=== PATIENT | female | born 1955 | race Caucasian/White ===

== ENCOUNTER → 2020-07-22 13:15 | Outpatient (CLI) | payer MEDICARE, SELFPAY ==
--- NOTE | ~2020-07-22 | MM_ITS ---
EXAMINATION: MM screening [facility] BI w serina HISTORY: Screening mammogram TECHNIQUE: Craniocaudal and mediolateral oblique 3-D tomosynthesis images were obtained and synthetic 2-D images were generated. CAD analysis was submitted and interpreted. COMPARISON: 04/18/2007 bilateral digital screening mammogram BREAST PARENCHYMAL COMPOSITION: There are scattered areas of fibroglandular density. FINDINGS: There is mild fibroglandular asymmetry. Bilateral diagnostic mammography is recommended, wi th ultrasound if required. No malignant calcification, skin thickening or retraction is evident. IMPRESSION: 1. Bilateral mammographic asymmetry 2. Bilateral diagnostic mammography is recommended, with ultrasound if required BI-RADS Category 0: Incomplete: Needs additional imaging evaluation. Reviewed, dictated and finalized at location A.
--- NOTE | ~2020-07-22 | DEXA_ITS ---
Bone Density Report Name: Brook Maurer Age: 65 Sex: Female Ethnicity: White Date of : 1955 Indication: postmenopausal; screening for osteoporosis; parental hip fracture; height loss; prior fracture; Referring Provider: John Cote Study: Bone densitometry was performed. Exam Date: July 22, 2020 Accession number: [id number] Bone Density: Region BMD T-score Z-score Classification AP Spine (L1, L3, L4) 1.241 1.7 3.6 Normal Femoral Neck (Left) 1.071 2.0 3.6 Normal Total Hip (Left) 1.253 2.6 3.8 Normal Femoral Neck (Right) 1.083 2.1 3.7 Normal Total Hip (Right) 1.267 2.7 4.0 Normal Total Hip Mean 1.260 2.7 3.9 Normal World Health Organization criteria for BMD impression classify patients as: Normal (T-score at or above -1.0), Osteopenia (T-score between -1.0 and -2.5), or Osteoporosis (T-score at or below -2.5). 10-year Fracture Risk: FRAX not reported because: All T-scores for Spine Total, Hip Total, Femoral Neck at or above -1.0 Clinical Information Provided by Patient: Has had a low trauma fracture Parent has had a hip fracture Has used the following medications: Vitamin D, Calcium Patient maximum height was 66.7 Menopause Age: 54 No regular weight bearing exercise Onset of menses at age 12 Number of children 2 Impression: The patient has normal bone mass. The patient has risk factors, including: parental hip fracture, previous fracture. Discussion: LOW RISK OF FRACTURE; BONE DENSITY IS WELL ABOVE THE MINIMUM DESIRABLE LEVEL AND ABOVE AVERAGE FOR AGE AND SEX AT ALL SKELETAL SITES TESTED. This person's bone density is above expected limits for age and sex. This is rarely clinically significant, but should be pursued if there are significant musculoskeletal complaints. The patient should follow a healthful lifestyle (good nutrition with adequate calcium and vitamin D, and appropriate weight-bearing exercise). Follow-Up: Consider repeating this study in 5 years or sooner if there is some new clinical indication. Reported by: MIAH on 07/22/2020 1:41:00 PM. Reviewed, dictated and finalized at location A. [facility] HOSPITALBrandon
== END ==
PROVIDERS: PCP Family Medicine; Visit Provider Physician Assistant Medical
DX: Z12.31 Encounter for screening mammogram for malignant neoplasm of breast (principal); Z78.0 Asymptomatic menopausal state; R92.8 Other abnormal and inconclusive findings on diagnostic imaging of breast
CPT/HCPCS: 77063; 77067; 77080

== ENCOUNTER → 2020-08-19 08:53 | Outpatient (CLI) | payer MEDICARE, SELFPAY ==
--- NOTE | ~2020-08-19 | MM_ITS ---
EXAMINATION: MM diagnostic mammo unilat LT HISTORY: Asymmetric approximately 9 mm no mammographic opacity in central left breast on craniocaudal view of 07/22/2020 TECHNIQUE: Additional 3-D tomosynthesis images of the left breast were performed and synthetic 2-D im ages were generated. CAD analysis was submitted and interpreted. COMPARISON: 07/22/2020 bilateral digital screening mammogram FINDINGS: No reproducible mass or architectural distortion is evident. IMPRESSION: 1. No mammographic evidence of a likely 2. Routine annual mammographic screening is recommended. BI-RADS Category 1: Negative Reviewed, dictated and finalized at location A.
== END ==
PROVIDERS: PCP Family Medicine; Visit Provider Physician Assistant Medical
DX: R92.8 Other abnormal and inconclusive findings on diagnostic imaging of breast (principal)
CPT/HCPCS: 77065

== ENCOUNTER → 2020-11-07 11:30 | Outpatient (CLI) | payer MEDICARE, SELFPAY ==
--- NOTE | ~2020-11-07 | XR_ITS ---
XR knee LT min 4V DATE: 11/07/2020 11:51 INDICATION: Left knee chronic pain. No injury. TECHNIQUE: Standing AP, PA views. Lateral and sunrise views. COMPARISON: None FINDINGS: There is tricompartment osteoarthritis, most prominent at the patellofemoral joint where th ere is prominent joint space narrowing and prominent periarticular spurring. There is particular spur ring at the lateral and to a minimal extent medial compartments, moderate loss of height of the media l compartment joint space. No fracture or dislocation, periosteal reaction or bone destruction or joint effusion. No radiopaque intra-articular loose body or chondrocalcinosis. 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
== END ==
PROVIDERS: PCP Physician Assistant Medical; Visit Provider Physician Assistant Medical
DX: M17.12 Unilateral primary osteoarthritis, left knee (principal)
CPT/HCPCS: 73564

== ENCOUNTER → 2020-11-30 08:06 | Outpatient (CLI) | payer MEDICARE, SELFPAY ==
--- NOTE | ~2020-11-30 | MR_ITS ---
EXAMINATION: MR knee LT wo con DATE: 11/30/2020 09:08 INDICATION: Left knee pain. TECHNIQUE: Magnetic resonance imaging (MRI) of the left knee was performed without intravenous contra st. Sequences included axial PD-weighted FS FSE, coronal PD-weighted FSE and PD-weighted FS FSE, sagi ttal PD-weighted FSE, and sagittal T2-weighted FS FSE. COMPARISON: Left knee radiographs 11/07/2020 FINDINGS: Medial compartment: Medial meniscus is normal. There is shallow partial-thickness cartilage loss of femoral condyle and t ibial condyle. There is deep partial thickness cartilage loss of femoral condyle involving the centra l articular surface. Osteophytes are noted. Lateral compartment: There is a radial tear of posterior horn of lateral meniscus. There is deep partial thickness cartila ge loss of tibial condyle involving the central articular surface. There is deep partial thickness ca rtilage loss of femoral condyle involving the central articular surface. Osteophytes are noted. Patellofemoral compartment: There is full-thickness cartilage loss of patellar median ridge and lateral facet with cortical remod eling and mild subchondral edema-like marrow signal intensity. There is partial-thickness cartilage l oss of patellar medial facet. There is full-thickness cartilage loss of central and lateral trochlea with cortical remodeling and mild subchondral edema-like marrow signal intensity. Osteophytes are not ed. Ligaments and tendons: The anterior and posterior cruciate ligaments are normal. Medial collateral ligament and lateral judah ateral ligament complex are intact. There is mild patellar tendinopathy. Fluid: There is a small knee joint effusion. There is mild superficial infrapatellar bursitis. IMPRESSION: 1. Severe chondrosis of patellofemoral compartment and moderate chondrosis of medial and lateral comp artments. 2. Tear of lateral meniscus. 3. Small knee joint effusion. Reviewed, dictated and finalized at location A. IMPRESSION: 1. Severe chondrosis of patellofemoral compartment and moderate chondrosis of m edial and lateral compartments. 2. Tear of lateral meniscus. 3. Small knee joint effusion.
== END ==
PROVIDERS: PCP Family Medicine; Visit Provider Family Medicine
DX: M25.569 Pain in unspecified knee (principal); S83.282A Other tear of lateral meniscus, current injury, left knee, initial encounter; M25.462 Effusion, left knee
CPT/HCPCS: 73721

== ENCOUNTER 2023-02-02 02:35 | Day surgery (SDC) | payer MEDICARE, SELFPAY ==
[2023-01-22 10:28] VITALS: BMI 55.0
--- NOTE | 2023-01-29 11:30 | SUR.PREOP ---
Patient called regarding upcoming procedure. Message left on patient's voicemail regarding preop instructions and appointment times.Call back number given.
[2023-02-02 08:29] VITALS: BP 148/93; PULSE 71; RESP 22; TEMP 36.2; O2SAT 99; BMI 55.0
[2023-02-02] MEDS: LACTATED RINGERS 1,000 ML 150 ML IV CONT (08:31)
--- NOTE | 2023-02-02 08:54 | WPDANESEPPF ---
Anes - Initial Pre Proc Eval Procedure: Operation Date: 02/02/23 09:30 Proposed Procedures p Screening Colonoscopy - Brad Calvillo MD Date/Time: 02/02/23 08:54 Surgeon: Brad Calvillo MD Pre Op Diagnosis: eveline screening;fam hx of neoplasm digestive organ Patient Data Age: 67 Gender: F Height: 1.65 m Weight: 150.2 kg Last Vital Signs Temp 97.1 F L 02/02/23 08:29 Pulse 71 02/02/23 08:29 Resp 22 H 02/02/23 08:29 BP 148/93 H 02/02/23 08:29 Pulse Ox 99 02/02/23 08:29 O2 Del Method Room Air 02/02/23 08:29 Allergies Allergy/AdvReac Type Severity Reaction Status Date / Time tramadol Allergy Unknown Diarrhea Verified 02/02/23 08:27 Home Medications Medication Instructions Recorded Confirmed Type cholecalciferol (vitamin D3) 50 50 mcg PO DAILY 09/13/20 02/02/23 History mcg (2,000 unit) capsule mecobalamin (vitamin B12) 1,000 1,000 mcg PO DAILY 09/13/20 02/02/23 History mcg chewable tablet acetaminophen 325 mg tablet 325 mg PO Q6H PRN Pain 12/16/20 02/02/23 History (Tylenol) duloxetine 60 mg capsule,delayed See Rx Instructions .Route 08/13/21 02/02/23 Rx release .COMPLEX #180 caps pramipexole 1 mg tablet 1 mg PO BID #180 tabs 12/14/22 02/02/23 Rx Patient hx anesthesia problems: none Family hx anesthesia problems: none Results Review: All pre-operative results and documents have been reviewed as part of the pre-operative evaluation. [facility], [facility] Past Medical History Medical History (Updated 02/02/23 @ 08:59 by Brad Calvillo MD) Colon cancer screening Family History Family History Sibling Diabetes mellitus Family history of thyroid disease Hypertension Mother Family history of malignant neoplasm Diabetes mellitus Father Family history of cardiovascular disease Grandparent Family history of pancreatic cancer Other Family history of ankylosing spondylitis Social History Social History Smoking status: Never smoker Alcohol intake: never Lack of Transportation: No Lack of Food: Never True Current Housing: I Have Housing Concerned About Future Housing: No Difficulty Paying Gas/Electric Bills: No Difficulty Paying for Meds: No Currently Unemployed: No Education: Bachelor's Degree Difficulty w/ Childcare or Family Care: No Living arrangements: with family Spiritual care concerns: No Anes - Eval Final PreProcedure Day of Procedure 02/02/23 08:54 Patient weight: super morbidly obese Heart: regular rate and rhythm Lungs: clear to auscultation Airway: Mallampati scale class II Neurological: alert and oriented Last oral intake: >/= 8 hours ASA classification: III Emergent: no Anesthetic plan: proceed Anesthesia type and monitoring: general GIVS and standard monitoring Results Review: All pre-operative results and documents have been reviewed as part of the pre-operative evaluation. Informed Consent: The patient's anesthetic plan and its attendant risks and benefits were discussed with the patient/family/POA. Questions were solicited and answers provided to the satisfaction of the patient/family/POA.
--- NOTE | 2023-02-02 08:58 | PM.HPGS ---
History of Present Illness History of Present Illness Consent: Risks, benefits, and alternatives have been discussed and questions answered. Patient agrees to proceed with procedure. Chief complaint: eveline screening;fam hx of neoplasm digestive organ Narrative: Brook Maurer is a 67 year old female here for first screening colonoscopy Review of Systems Constitutional: Constitutional: Denies headache(s) and Denies weakness Eyes: Eyes: Denies blurry vision ENT: Reports Normal hearing present, Denies headache(s) and Denies neck pain Cardiovascular: Cardiovascular: Denies chest pain and Denies dyspnea Respiratory: Respiratory: Denies dyspnea Gastrointestinal: Gastrointestinal: Reports no additional gastrointestinal complaints Genitourinary: Genitourinary: Denies dysuria Musculoskeletal: Musculoskeletal: Denies neck pain Integumentary/Breasts: Skin/Breast: Denies dry skin Neurologic: Reports Normal hearing present, Denies headache(s) and Denies weakness Psychiatric: Psychiatric: Denies anxiety Endocrine: Endocrine: Denies change in body appearance Hematologic/Lymphatic: Hematologic/Lymphatic: Denies easy bleeding Allergic/Immunologic: Allergic/Immunologic: Denies urticaria PMFSH Past Medical History Medical History (Updated 02/02/23 @ 08:59 by Brad Calvillo MD) Colon cancer screening Family History Family History Sibling Diabetes mellitus Family history of thyroid disease Hypertension Mother Family history of malignant neoplasm Diabetes mellitus Father Family history of cardiovascular disease Grandparent Family history of pancreatic cancer Other Family history of ankylosing spondylitis Social History Social History Smoking status: Never smoker Alcohol intake: never Lack of Transportation: No Lack of Food: Never True Current Housing: I Have Housing Concerned About Future Housing: No Difficulty Paying Gas/Electric Bills: No Difficulty Paying for Meds: No Currently Unemployed: No Education: Bachelor's Degree Difficulty w/ Childcare or Family Care: No Living arrangements: with family Spiritual care concerns: No Meds Home Medications and Allergies Home Medications Medication Instructions Recorded Confirmed Type cholecalciferol (vitamin D3) 50 50 mcg PO DAILY 09/13/20 02/02/23 History mcg (2,000 unit) capsule mecobalamin (vitamin B12) 1,000 1,000 mcg PO DAILY 09/13/20 02/02/23 History mcg chewable tablet acetaminophen 325 mg tablet 325 mg PO Q6H PRN Pain 12/16/20 02/02/23 History (Tylenol) duloxetine 60 mg capsule,delayed See Rx Instructions .Route 08/13/21 02/02/23 Rx release .COMPLEX #180 caps pramipexole 1 mg tablet 1 mg PO BID #180 tabs 12/14/22 02/02/23 Rx Allergies Allergy/AdvReac Type Severity Reaction Status Date / Time tramadol Allergy Unknown Diarrhea Verified 02/02/23 08:27 Vital Signs Vital Signs - 24 hr 02/02/23 08:29 Temperature 97.1 F L Pulse Rate 71 Respiratory Rate 22 H Blood Pressure 148/93 H Pulse Oximetry 99 Oxygen Delivery Room Air Exam Const: General: comfortable and no acute distress HENMT: Face/Nose/Sinus: Normal nares present Eyes: General: appearance normal, both eyes and all related structures Neck: Neck: no JVD Resp: Auscultation: clear to auscultation bilaterally Cardio: Rate: regular rate Rhythm: regular rhythm GI: Inspection: non-distended GI Palp: Yes Soft to palpation Skin: General skin exam: normal color Neuro: General: gait normal Speech: normal speech Extrem: General: normal to inspection Psych: Mental Status: mental status grossly normal Assessment and Plan Assessment and plan (1) Colon cancer screening: Code(s): Z12.11 - Encounter for screening for malignant neoplasm of colon Status: Acute Assessment and Plan:
[2023-02-02 09:33] VITALS: BP 95/51; PULSE 79; RESP 23; O2SAT 99
[2023-02-02 09:43] VITALS: BP 115/63; PULSE 78; RESP 16; O2SAT 98
[2023-02-02 09:53] VITALS: BP 123/56; PULSE 73; RESP 23; O2SAT 100
== END 2023-02-02 09:57 | disposition home or self-care (01) ==
PROVIDERS: PCP Family Medicine; Visit Provider Internal Medicine Gastroenterology
PROC: 0DJD8ZZ Inspection of Lower Intestinal Tract, Via Natural or Artificial Opening Endoscopic (ICD-10-PCS; CPT 45378; principal; 2023-02-02 09:30)
DX: Z12.11 Encounter for screening for malignant neoplasm of colon (principal); D12.2 Benign neoplasm of ascending colon; D12.5 Benign neoplasm of sigmoid colon; K63.5 Polyp of colon; E66.01 Morbid (severe) obesity due to excess calories; Z68.43 Body mass index [BMI] 50.0-59.9, adult; Z80.0 Family history of malignant neoplasm of digestive organs
CPT/HCPCS: 45385; 45380; 88305; J2704; J7120

== ENCOUNTER → 2023-04-22 12:08 | Outpatient (CLI) | payer MEDICARE, SELFPAY ==
--- NOTE | ~2023-04-22 | MM_ITS ---
EXAMINATION: MM screening [facility] BI w serina HISTORY: Screening mammogram TECHNIQUE: Craniocaudal and mediolateral oblique 3-D tomosynthesis images were obtained and synthetic 2-D images were generated. CAD analysis was submitted and interpreted. COMPARISON: 08/19/2020, 07/22/2020, 10/11/2018 BREAST PARENCHYMAL COMPOSITION: The breasts are almost entirely fatty. FINDINGS: No suspicious mass, calcification, or architectural distortion are identified in either latoya ast to suggest malignancy. There has been no suspicious interval change. IMPRESSION: 1. No mammographic evidence of malignancy. 2. Recommend routine screening mammography in one year. BI-RADS Category 1: Negative Reviewed, dictated and finalized at location A. [facility]
== END ==
PROVIDERS: PCP Family Medicine; Visit Provider Family Medicine
DX: Z12.31 Encounter for screening mammogram for malignant neoplasm of breast (principal)
CPT/HCPCS: 77063; 77067

== ENCOUNTER 2024-04-25 10:57 | Outpatient (CLI) | payer MEDICARE, SELFPAY ==
--- NOTE | ~2024-04-25 | MM_ITS ---
EXAMINATION: MM screening [facility] BI w serina HISTORY: Screening TECHNIQUE: Craniocaudal and mediolateral oblique 3-D tomosynthesis images were obtained and synthetic 2-D images were generated. CAD analysis was submitted and interpreted. COMPARISON: Comparison to multiple prior studies sequentially, with oldest reviewed study dated 10/11. BREAST PARENCHYMAL COMPOSITION: Not dense: There are scattered areas of fibroglandular density. FINDINGS: There is no evidence of suspicious mass, calcification, or architectural distortion to sugg est malignancy in either breast. There has been no suspicious interval change. IMPRESSION: 1. No mammographic evidence of malignancy. 2. Recommend routine screening mammography in one year. BI-RADS Category 1: Negative Reviewed, dictated and finalized at location A. ON [facility]PERT
== END 2024-04-25 10:58 | disposition home or self-care (01) ==
LOC: MICIMG 10:58
PROVIDERS: PCP Family Medicine; Visit Provider Family Medicine
DX: Z12.31 Encounter for screening mammogram for malignant neoplasm of breast (principal)
CPT/HCPCS: 77063; 77067

== ENCOUNTER 2024-12-28 14:18 | Outpatient (CLI) | payer MEDICARE, SELFPAY ==
--- NOTE | ~2024-12-28 | US_ITS ---
EXAMINATION: US soft tissue LE DATE: 12/28/2024 14:57 INDICATION: Palpable lump at the medial left calf TECHNIQUE: Multiple grayscale and Doppler ultrasound images of the region of concern at the medial left calf were obtained. COMPARISON: None FINDINGS: Vascular flow is seen within a patent subcutaneous vessel extending through the region of concern. Branching from this main vessel are unremarkable hypoechoic likely thrombosed subcutaneous vessels without internal vascular flow on color Doppler along with a reticulated pattern of edema in the surrounding fat. Appearance suggestive of superficial thrombophlebitis. IMPRESSION: 1. Edema surrounding a likely small thrombosed superficial vessel at the region of concern suggestive of thrombophlebitis. Reviewed, dictated and finalized at location A.
--- OUTSIDE RECORDS SUMMARY | 2024-12-28 14:24 | XMS_ITS | Clinical Summary ---
Author Organization [facility] Address [address] [place] [id number] Care Team Providers Care Oyster Picker Name Role Phone Chino Gonzalez MD Primary Care Provider [phone] Allergies Active Allergy Reactions Criticality Noted Date Comments Tramadol Diarrhea Low 04/13/2019 Medications ascorbic acid, vitamin C, 250 mg tablet,chewable Take 240 mg by mouth. Active cholecalciferol (VITAMIN D-3) 4,000 unit capsule 0.25 capsules (1,000 Units total) Active cyanocobalamin (Vitamin B-12) 1,000 mcg tabletIndicatio ns:Prevention of Vitamin B12 Deficiency Take 1 tablet (1,000 mcg total) by mouth daily Active magnesium oxide (MAG-OX) 400 mg (241.3 mg elemental magnesium) tabletIndicatio ns:hypomagnesem ia Take 1 tablet (400 mg total) by mouth daily Active DULoxetine DR (CYMBALTA) 60 mg capsule Take 1 capsule (60 mg total) by mouth daily 1 Active Zepbound 2.5 mg/0.5 mL pen injector INJECT 2.5 MG UNDER THE SKIN EVERY WEEK 4 Active gabapentin (NEURONTIN) 300 mg capsule 2 caps qhs 180 capsule 3 4 Active Additional Information Patient taking differently: 2 to 3 caps qhs, Reported on 03/08/2024 rotigotine (Neupro) 3 mg/24 hour patch 24 hour APPLY 1 PATCH TOPICALLY TO THE SKIN DAILY 90 patch 3 5 Active Active Problems Problem Noted Date Diagnosed Date Class 3 obesity with alveola r hypoventilation and body mass index (BMI) of 45.0 to 49.9 in adult 04/11/2019 Lumbar spondylosis 04/11/2019 Breast disorder 03/16/2014 Immunizations Immunization Administration Dates Next Due Influenza, Quadrivalent, Hig h Dose, Preservative Free, Intrr 12/19/2020 Pneumococcal Conjugate PCV 13 04/05/2020 Surgical History Surgery Date Site/Laterality Comments BREAST SURGERY Medical History Medical History Date Comments Arthritis Obesity Pneumonia Family History Medical History Relation Name Comments COPD Brother Evens Arthritis Father Ajith Heart disease Father Ajith Restless legs syndrome Father Ajith Arthritis Mother Leslee Breast cancer Mother Leslee Adenocarcinoma of breast - (Added by TW Conv) Cancer Mother Leslee Diabetes Mother Leslee Gout Mother Leslee Scoliosis Mother Leslee Spondylolisthesis Mother Leslee Stroke Mother Leslee Diabetes Sister Mental illness Son Relation Name Status Comments Brothjose armando Horner Alive Father Ajith Mother Leslee Sister Son Social History Tobacco Use Types Packs/Day Years Used Date Smoking Tobacco: Never Tobacco Cessation:Counseling Given: Not Answered Alcohol Use Standard Drinks/Week Comments Yes 0 (1 standard drink = 0.6 oz pur e alcohol) rare Comments Unknown Sex and Gender Information Value Date Recorded Sex Assigned at Not on file Legal Sex Female 4:00 AM ZINC MINER BLASTING Gender Identity Female 01/31/2023 3:26 PM ZINC MINER BLASTING Sexual Orientation Straight 01/31/2023 3: 26 PM ZINC MINER BLASTING Occupation Industry Job Start Date Job End Date retired Not on file Not on file Not on file Obstetrics History Last Filed Vital Signs Vital Sign Reading Time Taken Comments Blood Pressure 120/79 08/15/2024 2:53 PM CDT Pulse 85 08/15/2024 2:53 PM CDT Temperature 36.3 C (97.3 F) 08/15/2024 2:53 PM CDT Respiratory Rate - - Oxygen Saturation - - Inhaled Oxygen Concentration - - Weight 120.9 kg (266 lb 9.6 oz) 08/15/2024 2:53 PM CDT Height 165.1 cm (5' 5) 08/15/2024 2:53 PM CDT Body Mass Index 44.36 08/15/2024 2:53 PM CDT Plan of Treatment Health Maintenance Due Date Last Done Comments Colon Cancer Screening-Colonoscopy 1954 Fall Risk Assessment 1954 Hepatitis C Screening 1954 DTaP/Tdap/Td Vaccine (1 - Tdap) 1965 Hepatitis B Screening 1972 Zoster Vaccine (1 of 2) 2004 Well Visit 65+ 2019 Breast Cancer Screening-Mammogram 10/12/2019 10/11/2018, 03/07/2014, 01/26/2014 Pneumococcal vaccine 65+ (2 of 2 - PCV20 or PCV21) 04/05/2021 04/05/2020 Depression Screening 02/04/2024 02/03/2023 Covid-19 Vaccine ( season) 2024 01/25/2021, 06/11/2020, 05/11/2020 Influenza Vaccine (#1) 2024 12/20/2023, 2020 Osteoporosis Screening-Bone Density Scan 05/19/2026 05/19/2024 Procedures Procedure Name Priority Date/Time Associated Diagnosis Comments DEXA AXIAL SKELETON BONE DENSITY 1 OR MORE SITES Schedule Routine, Read Routine (OP Routine) 05/19/2024 2:30 PM ZINC MINER BLASTING Asymptomatic menopausal state Loss of height SCREENING MAMMOGRAM BILATERAL W LEON Schedule Routine, Read Routine (OP Routine) 10/11/2018 12:57 PM CDT Encounter for screening mammogram for malignant neoplasm of breast from Last 3 Months or Most Recently Relevant to Health Maintenance Results * Dexa Axial Skeleton Bone Density 1 or 2 Site (05/19/2024 2:30 PM ZINC MINER BLASTING) Anatomical Region Laterality Modality Body N/A Mammography 05/20/2024 11:3 3 AM ZINC MINER BLASTING Narrative 05/20/2024 11:35 AM ZINC MINER BLASTING EXAM DESCRIPTION: DEXA AXIAL SKELETON BONE DENSITY 1 OR MORE SITES REASON FOR STUDY: 69 y/o year old F with given history of: Height loss. Post menopausal status. History of prior fracture and parent with hip fracture. 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 CLINICAL INFORMATION: Current height: 60 inches Maximum height: 66.5 inches Weight: 283.6 pounds Risk factors: Prior fracture and parent with hip fracture COMPARISON: None available FINDINGS: AP LUMBAR SPINE L1-L4: Total BMD is 1.380 g/cm2 T-score is 3.0 LEFT HIP: Total BMD is 1.147 g/cm2 T-score is 1.7 Femoral neck BMD is 0.980 g/cm2 T-score is 1.2 FRAX: FRAX not reported due to T-scores of hip, femoral neck and/or spine being at or above -1.0 (Normal). IMPRESSION: Normal bone mass. REFERENCE: Bone mineral density: T-Score: Normal (T-score above or = -1.0) Low bone mass (T-score between -1.0 and -2.5) replaces the previously used term osteopenia Osteoporosis (T-score = or below -2.5) Z-Score: Within the expected range for age (Z-score above -2.0) Below the expected range for age (Z-score is -2.0 or below) Please see below follow up recommendations. Medical evaluation for secondary causes of low bone mineral density may be appropriate. FRAX is a World Health Organization validated fracture risk assessment tool that calculates a person's 10 year probability of a major osteoporosis related fracture and hip fracture. According to the National Osteoporosis Foundation guidelines, postmenopausal women and men age 50 or older with low bone mass and a 10 year probability of a major osteoporosis related fracture = or greater than 20% or a 10 year probability of a hip fracture = or greater than 3% should be considered for pharmacological treatment for the prevention of osteoporosis. For further information, including treatment recommendations, please refer to the 2019 ISCD Official Positions (http://www.iscd.org) and the NOF's Clinician's Guide to Prevention and Treatment of Osteoporosis (http://www.nof.org/professionals/clinical-guidelines) THIS IS AN ELECTRONICALLY VERIFIED FINAL REPORT 05/20/2024 11:35 AM - Electronically signed by Angela Erickson M.D. TW: TW Report ID: [id number] Reading Location: [id number] Procedure Note Angela Erickson MD - 05/20/2024 EXAM DESCRIPTION: DEXA AXIAL SKELETON BONE DENSITY 1 OR MORE SITES REASON FOR STUDY: 69 y/o year old F with given history of: Heightloss. Post menopausal status. History of prior fracture and parent with hip fracture. 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 CLINICAL INFORMATION: Current height: 60 inches Maximum height: 66.5 inches Weight: 283.6 pounds Risk factors: Prior fracture and parent with hip fracture COMPARISON: None available FINDINGS: AP LUMBAR SPINE L1-L4: Total BMD is 1.380 g/cm2 T-score is 3.0 LEFT HIP: Total BMD is 1.147 g/cm2 T-score is 1.7 Femoral neck BMD is 0.980 g/cm2 T-score is 1.2 FRAX: FRAX not reported due to T-scores of hip, femoral neck and/or spine beingat or above -1.0 (Normal). IMPRESSION: Normal bone mass. REFERENCE: Bone mineral density: T-Score: Normal (T-score above or = -1.0) Low bone mass (T-score between -1.0 and -2.5) replaces thepreviously used term osteopenia Osteoporosis (T-score = or below -2.5) Z-Score: Within the expected range for age (Z-score above -2.0) Below the expected range for age (Z-score is -2.0 or below) Please see below follow up recommendations. Medical evaluation forsecondary causes of low bone mineral density may be appropriate. FRAX is a World Health Organization validated fracture risk assessmenttool that calculates a person's 10 year probability of a major osteoporosisrelated fracture and hip fracture. According to the National OsteoporosisFoundation guidelines, postmenopausal women and men age 50 or older with low bonemass and a 10 year probability of a major osteoporosis related fracture = or greater than 20% or a 10 year probability of a hip fracture = or greaterthan 3% should be considered for pharmacological treatment for the preventionof osteoporosis. For further information, including treatment recommendations, please referto the 2019 ISCD Official Positions (http://www.iscd.org) and the NOF's Clinician's Guide to Prevention and Treatment of Osteoporosis (http://www.nof.org/professionals/clinical-guidelines) THIS IS AN ELECTRONICALLY VERIFIED FINAL REPORT 05/20/2024 11:35 AM - Electronically signed by Angela Erickson M.D. TW: TW Report ID: [id number] Reading Location: [id number] Chino Gonzalez MD IMG DXA PROCEDURES Final Result * Screening Mammogram Bilateral W Leon (10/11/2018 12:57 PM CDT) Anatomical Region Laterality Modality Breast Bilateral Mammography Narrative 10/12/2018 10:00 AM CDT Mammogram Technique: Bilateral Digital Breast Tomosynthesis, Bilateral C-view 2D Screening mammogram. Views obtained: bilateral craniocaudal and bilateral mediolateral oblique. Computer Aided Detection was performed. Mammogram Findings: The present examination has been compared to prior imaging studies performed at [facility] on 03/07/2014 and 05/11/2014. There are scattered areas of fibroglandular density. There is no suspicious abnormality in either breast. Impression: Annual screening mammography is recommended. OVERALL FINAL ASSESSMENT: BI-RADS CATEGORY 1: Negative. Procedure Note Deborah Davila MD - 10/12/2018 Mammogram Technique: Bilateral Digital Breast Tomosynthesis, Bilateral C-view 2D Screening mammogram. Views obtained: bilateral craniocaudal and bilateral mediolateral oblique. Computer Aided Detection was performed. Mammogram Findings: The present examination has been compared to prior imaging studies performed at [facility] on 03/07/2014 and 05/11/2014. There are scattered areas of fibroglandular density. There is no suspicious abnormality in either breast. Impression: Annual screening mammography is recommended. OVERALL FINAL ASSESSMENT: BI-RADS CATEGORY 1: Negative. Chino Gonzalez MD IMG MAMMO PROCEDURES Cora l Result from Last 3 Months or Most Recently Relevant to Health Maintenance Insurance [facility] MEDICARE ADVANTAGE [facility]ICE PLUS [facility] MEDICARE ADVANTAGE [employer] MEDICARE ADVANTAGE Care Teams Oyster Picker Relationship Specialty Start Date End Date Chino Gonzalez MD PCP - General Family Medicine 01/31/18
--- OUTSIDE RECORDS SUMMARY | 2024-12-28 14:24 | XMS_ITS | Clinical Summary ---
Author Organization [employer] [id number] [facility] Address [address] [place] [address] Care Team Providers Care Data Analyst Report Writer Name Role Phone Chino Gonzalez MD Primary Care Provider [phone] Allergies Active Allergy Reactions Criticality Noted Date Comments Tramadol Diarrhea Low 04/13/2019 Medications DULoxetine (CYMBALTA) 60 mg Capsule, Delayed Release(E.C.) TK 1 C PO D 03/30/2019 Act niles pramipexole (MIRAPEX) 1 mg Tablet TK 1 T PO BID 03/30/2019 Active naproxen sodium (ALEVE ORAL) Take 2 Tablets by mouth 2 times daily. Active multivit-mins no.63/iron/foli c (M-VIT ORAL) Take by mouth. Active calcium carbonate (CALTRATE 600 ORAL) Take 2 Tablets by mouth daily. Active ascorbic acid (VITAMIN C ORAL) Take by mouth. Active ergocalciferol, vitamin D2, (VITAMIN D ORAL) Take by mouth. Active cyanocobalamin, vitamin B-12, (VITAMIN B-12 ORAL) Take by mouth. Active Active Problems Problem Noted Date Diagnosed Date Class 3 obesity with alveola r hypoventilation and body mass index (BMI) of 45.0 to 49.9 in adult 04/11/2019 Spondylolisthesis at L5-S1 level 04/11/2019 Spondylolisthesis at L4-L5 level 04/11/2019 Lumbar spondylosis 04/11/2019 Family History Medical History Relation Name Comments Unknown Father Unknown Mother Relation Name Status Comments Father Mother Social History Tobacco Use Types Packs/Day Years Used Date Smoking Tobacco: Never Alcohol Use Standard Drinks/Week Comments Yes 0 (1 standard drink = 0.6 oz pur e alcohol) rare Comments Unknown Sex and Gender Information Value Date Recorded Sex Assigned at Not on file Legal Sex Female 2:58 PM CDT Gender Identity Not on file Sexual Orientation Not on file Occupation Industry Job Start Date Job End Date retired Not on file Not on file Not on file Last Filed Vital Signs Vital Sign Reading Time Taken Comments Blood Pressure - - Pulse - - Temperature - - Respiratory Rate - - Oxygen Saturation - - Inhaled Oxygen Concentration - - Weight 149.7 kg (330 lb) 04/13/2019 12:53 PM CLIENT RELATIONS ASSOCIATE Height 167.6 cm (5' 6) 04/13/2019 12:53 PM CLIENT RELATIONS ASSOCIATE Body Mass Index 53.26 04/13/2019 12:53 PM CLIENT RELATIONS ASSOCIATE Plan of Treatment Health Maintenance Due Date Last Done Comments Pre-Diabetes and Diabetes Screening 1954 DTAP/TDAP/TD VACCINES (1 - Tdap) 1973 BREAST CANCER SCREENING 1994 COLORECTAL SCREENING 1999 Colorectal Cancer Screening 1999 FIT-DNA Q 3 years 1999 FIT/FOBT Q 1 year 1999 Flex Sig/CT Colonography Q 5 years 1999 PNEUMOCOCCAL VACCINE 50+ YEARS (1 of 1 - PCV) 03/14/20 04 ZOSTER VACCINE (1 of 2) 2004 RSV VACCINE (60+ or ) (1 - Risk 60-74 years 1-dose series) 2014 OSTEOPOROSIS SCREENING 2019 INFLUENZA VACCINE (#1) 2024 Insurance [employer] PPO [id number] Care Teams Data Analyst Report Writer Relationship Specialty Start Date End Date Chino Gonzalez MD PCP - General Family Practice 11/16/18
== END 2024-12-28 14:19 | disposition home or self-care (01) ==
PROVIDERS: PCP Family Medicine; Visit Provider Nurse Practitioner Family
DX: R22.42 Localized swelling, mass and lump, left lower limb (principal)
CPT/HCPCS: 76882